=== PATIENT | male | born 1940 ===

== ENCOUNTER 2016-04-26 14:15 | Inpatient (IN) | payer MEDICARE, OTHER ==
[~2016-04-26] VITALS: Ht 172.7 cm; Wt 69.9 kg
[2016-04-26] MEDS ORDERED: IBUP-1482 PO (14:35)
[2016-04-26] MEDS ORDERED: ACET-2605 PO (14:35)
[2016-04-26] MEDS ORDERED: AMOX500C2 PO (14:35)
--- NOTE | 2016-04-26 14:45 | NUR ---
PT IS IN ROOM #1A. DR FRANCIS EVALUATED THE PT.
[2016-04-26] MEDS ORDERED: METRONIDAZOLE 500 MG/NS 100ML 100 ML IV ONE ×2 (15:15→15:31)
[2016-04-26] MEDS ORDERED: KETOROLAC TROMETHAMINE 15 MG INJ IVP ONE (15:15)
[2016-04-26] MEDS ORDERED: CEFTRIAXONE 1 G in IV DEXTROSE 5% 50 ML IV ONE (15:15)
[2016-04-26] MEDS ORDERED: IV NORMAL SALINE 1000 ML BAG IV ONE (15:15)
[2016-04-26] MEDS ORDERED: CEFTRIAXONE 1 G VIAL ONE (15:30)
[2016-04-26] MEDS ORDERED: KETOROLAC TROMETHAMINE 15 MG INJ ONE (15:30)
[2016-04-26 15:47] LABS: BASOPHILS % (AUTO) 0.2 % (0.0-2.0); EOSINOPHILS # (AUTO) 0.1 K/uL (0.0-0.7); EOSINOPHILS % (AUTO) 1.4 % (0.0-7.0); HEMATOCRIT 43.2 % (40.0-50.0); HEMOGLOBIN 14.4 g/dL (14.0-18.0); LYMPHOCYTES # (AUTO) 1.4 K/uL (0.8-4.8); LYMPHOCYTES % (AUTO) 19.5 % (20.5-51.5); MEAN CORPUSCULAR HGB CONC 33 g/dL (32.0-37.0); MEAN CORPUSCULAR VOLUME 81.2 fL (82.0-92.0); MONOCYTES # (AUTO) 0.7 K/uL (0.1-1.30); MONOCYTES % (AUTO) 9.6 % (0.0-11.0); NEUTROPHILS # (AUTO) 4.9 K/uL (1.8-8.9); NEUTROPHILS % (AUTO) 69.3 % (38.5-71.5); PLATELET COUNT (AUTO) 216 K/uL (150-450); RED BLOOD CELL COUNT(AUTO) 5.32 MIL/uL (4.70-6.10); WHITE BLOOD COUNT (AUTO) 7.1 K/uL (4.0-11.2)
[2016-04-26 15:51] LABS: CALCIUM 8.6 mg/dL (8.5-10.1); CREATININE 1.1 mg/dL (0.6-1.3); POTASSIUM 4.3 mmol/L (3.5-5.1)
[2016-04-26 15:55] LABS: TROPONIN I < 0.017 ng/mL (0.00-0.056)
[2016-04-26 15:57] LABS: ALBUMIN 3.3 g/dL (3.4-5.0); BILIRUBIN,DIRECT 0.1 mg/dL (0.0-0.2); BILIRUBIN,TOTAL 0.5 mg/dL (0.2-1.0); TOTAL PROTEIN, SERUM 8.4 g/dL (6.4-8.2)
[2016-04-26 16:01] LABS: LACTIC ACID 0.4 mmol/L (0.4-2.0)
--- NOTE | 2016-04-26 17:30 | NUR ---
PT WAS TRANSFERED TO M/S FLOOR, ROOM #221. REPORT WAS GIVEN TO M/S RN.
[2016-04-26] MEDS ORDERED: ONDANSETRON 4 MG/2 ML VIAL IV STA (17:46)
[2016-04-26] MEDS ORDERED: MORPHINE SULFATE 4 MG/1 ML DISP.SYRIN IV STA (17:46)
[2016-04-26] MEDS ORDERED: ONDANSETRON 4 MG/2 ML VIAL ONE (17:59)
[2016-04-26] MEDS ORDERED: MORPHINE SULFATE 4 MG/1 ML DISP.SYRIN ONE (17:59)
--- NOTE | 2016-04-26 18:00 | NUR ---
NEW PATIENT FROM ER TO ROOM 221 AWAKE ALERT COOPERATE WELL CALL SYSTEM INSTRUCTION BED ALARM ON AND CALL HARPER IN REACH HL INPLACE RT AC AND LFA
[2016-04-26 18:25] VITALS: BP 107/72
[2016-04-26] MEDS ORDERED: MAGNESIUM HYDROXIDE 30 ML LIQUID UDC PO PRN (19:45)
[2016-04-26] MEDS ORDERED: ZOLPIDEM 5 MG TABLET PO PRN (19:45)
[2016-04-26 20:00] VITALS: BP 133/72
[2016-04-26] MEDS: ACIDOPHILUS/BULGARICUS CHEW TAB PO SCH (20:28)
[2016-04-26] MEDS: MORPHINE SULFATE 2 MG/1 ML DISP.SYRIN IV PRN (20:29)
[2016-04-26] MEDS ORDERED: DOCUSATE SODIUM 100 MG CAPSULE PO ONE (20:31)
[2016-04-26] MEDS ORDERED: MORPHINE SULFATE 2 MG/1 ML DISP.SYRIN ONE (20:31)
[2016-04-26] MEDS ORDERED: ACIDOPHILUS/BULGARICUS CHEW TAB ONE ×2 (20:35→20:55)
[2016-04-26] MEDS ORDERED: DOCUSATE SODIUM 250 MG CAPSULE PO SCH (21:00)
[2016-04-26] MEDS ORDERED: CLINDAMYCIN PHOSPHATE 600 MG/4 ML VIAL ONE (21:07)
[2016-04-26] MEDS: CLINDAMYCIN PHOSPHATE IV 600 MG in IV DEXTROSE 5% 100 ML IV SCH (22:08)
[2016-04-27] MEDS: ONDANSETRON 4 MG/2 ML VIAL IV PRN (00:46)
[2016-04-27] MEDS ORDERED: ZOLPIDEM 5 MG TABLET ONE (00:52)
[2016-04-27] MEDS ORDERED: ONDANSETRON 4 MG/2 ML VIAL ONE (00:53)
[2016-04-27 04:00] VITALS: BP 135/72
[2016-04-27] MEDS: CLINDAMYCIN PHOSPHATE IV 600 MG in IV DEXTROSE 5% 100 ML IV SCH ×3 (06:17→22:10)
--- NOTE | 2016-04-27 06:32 | NUR ---
pt ambulated top br with mod one person assist, gait very unsteady this am. noticed dark brown spots to back and red rash to chin. pt denies itching. will continue to monitor and re-assess.
[2016-04-27 06:49] LABS: BASOPHILS % (AUTO) 0.3 % (0.0-2.0); EOSINOPHILS # (AUTO) 0.1 K/uL (0.0-0.7); EOSINOPHILS % (AUTO) 0.7 % (0.0-7.0); HEMATOCRIT 38.7 % (40.0-50.0); HEMOGLOBIN 13.4 g/dL (14.0-18.0); LYMPHOCYTES # (AUTO) 1.4 K/uL (0.8-4.8); LYMPHOCYTES % (AUTO) 14.2 % (20.5-51.5); MEAN CORPUSCULAR HEMOGLOBIN 28.3 uug (27.0-31.0); MEAN CORPUSCULAR HGB CONC 35 g/dL (32.0-37.0); MONOCYTES # (AUTO) 0.7 K/uL (0.1-1.30); MONOCYTES % (AUTO) 6.8 % (0.0-11.0); NEUTROPHILS # (AUTO) 7.6 K/uL (1.8-8.9); PLATELET COUNT (AUTO) 207 K/uL (150-450); RED BLOOD CELL COUNT(AUTO) 4.71 MIL/uL (4.70-6.10); RED CELL DISTRIBUTION WIDTH 12.9 % (11.5-14.5); WHITE BLOOD COUNT (AUTO) 9.8 K/uL (4.0-11.2)
[2016-04-27 07:08] LABS: ALBUMIN 3.1 g/dL (3.4-5.0); BILIRUBIN,TOTAL 0.5 mg/dL (0.2-1.0); CALCIUM 8.2 mg/dL (8.5-10.1); CREATININE 1.3 mg/dL (0.6-1.3); MAGNESIUM 1.7 mg/dL (1.8-2.4); POTASSIUM 4.1 mmol/L (3.5-5.1); TOTAL PROTEIN, SERUM 7.9 g/dL (6.4-8.2)
[2016-04-27 07:19] LABS: THYROID STIMULATING HORMONE 1.036 mIU/mL (0.358-3.740)
--- NOTE | 2016-04-27 07:20 | NUR ---
RECEIVED PATIENT IN BED, AAOx3, NO ACUTE DISTRESS NOTED. SKIN INTACT. IV 20G TO LEFT FA, CLEAN AND DRY, PATENT WITH SALINE FLUSH. NO REDNESS OR SWELLING. SAFETY MEASURES MAINTAINED.
--- NOTE | 2016-04-27 08:00 | NUR ---
PATIENT AWAKE AND ORIENTED x3, NO COMPLAINTS OF PAIN. pT IV INTACT H.L. Implemented plan of care with patient re: fall precaution, pain management of oral infection, and aspiration precaution. Noted Bruising on Right knee. Language barrier due to pt speaks mainly tajik with very little latvian. Bed alarm on.
[2016-04-27] MEDS: ACIDOPHILUS/BULGARICUS CHEW TAB PO SCH ×2 (08:46→21:50)
[2016-04-27] MEDS: PANTOPRAZOLE SODIUM 40 MG TABLET.DR PO SCH (08:46)
[2016-04-27] MEDS ORDERED: NEUTRA PHOS PACKET PO ONE (09:30)
[2016-04-27] MEDS ORDERED: MAGNESIUM OXIDE 400 MG TABLET PO ONE (09:30)
[2016-04-27] MEDS: ACETAMINOPHEN 325 MG TABLET PO PRN (11:39)
--- NOTE | 2016-04-27 11:45 | NUR ---
TEMP OF 101, TYLENOL 650MG GIVEN AND MD MADE AWARE. NO FURTHER ACTION NEEDED AT THIS TIME. WILL CONTINUE TO MONITOR TEMP.
[2016-04-27 11:48] VITALS: BP 110/64
--- NOTE | 2016-04-27 12:15 | NUR ---
TEMP 98.6, NO OTHER DISTRESS NOTED. NO FURTHER ACTION NEEDED AT THIS TIME. NO COMPLAINTS OF PAIN.
[2016-04-27 15:16] LABS: *BILIRUBIN,URIN NEGATIVE (NEGATIVE); *BLOOD, URINE Trace-lysed (NEGATIVE); *CLARITY,URINE CLEAR (CLEAR); *COLOR,URINE YELLOW (YELLOW); *KETONES,URINE NEGATIVE (NEGATIVE); *PROTEIN,URINE NEGATIVE (NEGATIVE); *UROBILINOGEN,URINE 0.2 E.U./dl (NORMAL); LEUKOCYTE ESTERASE ,URINE NEGATIVE (NEGATIVE); NITRITE, URINE NEGATIVE (NEGATIVE); UGLUCOSE NEGATIVE (NEGATIVE)
[2016-04-27 15:22] LABS: MUCUS,URINE FEW /LPF (0-FEW); WBC,URINE 0-3 /HPF (0-3)
[2016-04-27 15:40] VITALS: BP 90/61
--- NOTE | 2016-04-27 16:30 | NUR ---
COMMUNITY SERVICE SPECIALIST states that pt claiming that he fell last night. at bedside. Clarified with about pt c/o falling last night around MIDNIGHT. " Pt states that he fell and hit his right knee, right elbow and head- in kosovan language- to at around midnight. Pt states that he wanted to go to the bathroom. He fell and went back to bed per . Fall was not witnessed by anyone and pt did not inform anyone until now. " Pt has been alert and oriented x 3 and was able to make his needs known throughout shift. Notified Azra CAMPOS right away that after speaking to pt and further closer inspection small bruising on forehead noted in addition to bruising on right knee noted earlier this AM. New orders received and carried out.
[2016-04-27 20:00] VITALS: BP 105/63
[2016-04-27] MEDS: DOCUSATE SODIUM 100 MG CAPSULE PO SCH (21:50)
[2016-04-28 04:00] VITALS: BP 106/70
[2016-04-28] MEDS: CLINDAMYCIN PHOSPHATE IV 600 MG in IV DEXTROSE 5% 100 ML IV SCH ×3 (05:22→21:04)
[2016-04-28] MEDS: PANTOPRAZOLE SODIUM 40 MG TABLET.DR PO SCH (06:40)
--- NOTE | 2016-04-28 07:24 | NUR ---
Report received from shift superintendent. Patient received lying in bed AAOx3, no acute distress noted. Complaints of pain in jaw and mouth 08/25. Administered [place] po, no other interventions needed at this time. No change in mental status, no other pain noted elsewhere on body. Redness on right knee and right elbow, no acute changes to sites. Safety precautions maintained, fall precautions maintained. Call light within reach.
[2016-04-28 07:50] LABS: BASOPHILS % (AUTO) 0.3 % (0.0-2.0); EOSINOPHILS # (AUTO) 0.2 K/uL (0.0-0.7); EOSINOPHILS % (AUTO) 3.1 % (0.0-7.0); HEMATOCRIT 38.8 % (40.0-50.0); LYMPHOCYTES # (AUTO) 1.9 K/uL (0.8-4.8); LYMPHOCYTES % (AUTO) 24.2 % (20.5-51.5); MEAN CORPUSCULAR HEMOGLOBIN 27.6 uug (27.0-31.0); MEAN CORPUSCULAR HGB CONC 34 g/dL (32.0-37.0); MEAN CORPUSCULAR VOLUME 82.4 fL (82.0-92.0); MONOCYTES # (AUTO) 0.9 K/uL (0.1-1.30); MONOCYTES % (AUTO) 11.4 % (0.0-11.0); PLATELET COUNT (AUTO) 196 K/uL (150-450); RED BLOOD CELL COUNT(AUTO) 4.71 MIL/uL (4.70-6.10); RED CELL DISTRIBUTION WIDTH 13.2 % (11.5-14.5)
[2016-04-28 08:06] LABS: ALBUMIN 2.7 g/dL (3.4-5.0); BILIRUBIN,TOTAL 0.7 mg/dL (0.2-1.0); MAGNESIUM 1.7 mg/dL (1.8-2.4); PHOSPHOROUS 2.9 mg/dL (2.5-4.9); POTASSIUM 4.3 mmol/L (3.5-5.1); TOTAL PROTEIN, SERUM 7.3 g/dL (6.4-8.2)
[2016-04-28] MEDS: ACIDOPHILUS/BULGARICUS CHEW TAB PO SCH ×2 (09:28→21:01)
[2016-04-28] MEDS: HYDROCODONE/APAP 5-325MG TABLET PO PRN (09:29)
--- NOTE | 2016-04-28 10:31 | NUR ---
CLINICAL PHARMACY NOTE: REVIEW OF CSC MEDICATIONS Patient is a 75 yo male admitted after possible unresolved infection after dental procedure (extraction) earlier this month. Per patient report, patient had fever, felt dizzy and weak, and persistent pain at dental sites. Patient is otherwise in good health, documented home medications are only two pain medications, tylenol and ibuprofen, and course of amoxicillin for recent procedure done. High Risk Medications at this time (from home and in house): Zolpidem - increased risk of SEs dizziness, ataxia and therefore increased fall risk in elderly. Per RN note last night, it was noted patient had fallen on way to bathroom per pt's 's report to staff. No zolpidem was given, however, risk of another fall is increased from medication Ibuprofen - increased risk of GI bleed in elderly, however, pt is not on medication for care home use (for management of recent procedure pain) and prescribed as PRN. Patient is not on other medications such as ASA and does not have comorbid conditions such as PUD that could exacerbate risk of medication use. Morphine/[place] - increased risk of severe constipation and TRACTOR TRAILER DRIVER effects such as over-sedation/cognitive dysfunction that may lead to increased risk of falls. Patient is on for management of persistent pain from unresolved infection of dental procedure and has bowel regimen (docusate daily) to prevent constipation. Patient has used primarily tylenol so far in house for mild pain and has used only a dose of norco for moderate so far, from administration timing, patient's recent fall overnight likely not associated with dose of opioid given. As patient is in largely good health aside from dental procedure complication that he is being treated for, and all medications are indicated except zolpidem which is likely from routine medication set for inpatient management, will recommend to d/c or change zolpidem, especially as patient has had reported fall overnight. Addendum: 04/28/16 at 1117 by VENUS BREWSTER [facility] Relayed recommendation to , agreed to jermaine/christina oliver.
[2016-04-28 11:58] VITALS: BP 94/65
[2016-04-28] MEDS ORDERED: MAGNESIUM OXIDE 400 MG TABLET PO ONE (13:00)
[2016-04-28] MEDS: ONDANSETRON 4 MG/2 ML VIAL IV PRN (13:09)
[2016-04-28] MEDS ORDERED: MAGNESIUM HYDROXIDE 30 ML LIQUID UDC PO ONE (14:30)
[2016-04-28 15:34] VITALS: BP 96/59
--- NOTE | 2016-04-28 18:30 | NUR ---
Pt is in no acute distress. Pt noted facial redness slightly increase ( pt had prior redness around mouth) in intensity and will continue to be monitored. 1910 Report given to restaurant shift leader and redness on face decreased in intensit/redness. MOM effective pt had large bm.
[2016-04-28 20:00] VITALS: BP 81/57
[2016-04-28] MEDS: DOCUSATE SODIUM 100 MG CAPSULE PO SCH (21:01)
[2016-04-28] MEDS ORDERED: VANCOMYCIN IV 1 G in PREMIXED 0 EACH IV ONE (23:00)
[2016-04-28] MEDS: ACETAMINOPHEN 325 MG TABLET PO PRN (23:59)
[2016-04-29] MEDS ORDERED: PIPERACILLIN SODIUM/TAZO 3.375 GM VIAL ONE (00:54)
[2016-04-29] MEDS ORDERED: VANCOMYCIN 1000 MG VIAL ONE (00:54)
--- NOTE | 2016-04-29 01:00 | NUR ---
Vancmycin 1gm IVPB & Zosyn 3.375 g started as ordered. Patient tolerated well.
[2016-04-29 06:02] VITALS: BP 83/57
[2016-04-29] MEDS: PANTOPRAZOLE SODIUM 40 MG TABLET.DR PO SCH (06:17)
[2016-04-29] MEDS: PIPERACILLIN/TAZOBACTAM/D5W 3.375 G in PREMIXED 1 EACH IV SCH ×5 (06:27→21:47)
--- NOTE | 2016-04-29 06:45 | NUR ---
Patient resting comfortably. Denies pain at this time. Current BP 83/57. SUPERVISOR COMPOSING ROOM wood preparation supervisor notified. No further orders was received. Will continue to monitor.
[2016-04-29 06:46] LABS: BASOPHILS % (AUTO) 0.3 % (0.0-2.0); EOSINOPHILS # (AUTO) 0.2 K/uL (0.0-0.7); EOSINOPHILS % (AUTO) 2.6 % (0.0-7.0); HEMATOCRIT 40.9 % (40.0-50.0); HEMOGLOBIN 13.5 g/dL (14.0-18.0); LYMPHOCYTES # (AUTO) 1.5 K/uL (0.8-4.8); LYMPHOCYTES % (AUTO) 16.6 % (20.5-51.5); MEAN CORPUSCULAR HGB CONC 33 g/dL (32.0-37.0); MEAN CORPUSCULAR VOLUME 81.7 fL (82.0-92.0); MONOCYTES # (AUTO) 0.9 K/uL (0.1-1.30); MONOCYTES % (AUTO) 10.1 % (0.0-11.0); NEUTROPHILS # (AUTO) 6.2 K/uL (1.8-8.9); NEUTROPHILS % (AUTO) 70.4 % (38.5-71.5); PLATELET COUNT (AUTO) 237 K/uL (150-450); RED CELL DISTRIBUTION WIDTH 13.3 % (11.5-14.5); WHITE BLOOD COUNT (AUTO) 8.8 K/uL (4.0-11.2)
[2016-04-29 07:13] LABS: ALBUMIN 2.8 g/dL (3.4-5.0); BILIRUBIN,TOTAL 0.6 mg/dL (0.2-1.0); CALCIUM 8.2 mg/dL (8.5-10.1); MAGNESIUM 2.1 mg/dL (1.8-2.4); PHOSPHOROUS 3.3 mg/dL (2.5-4.9); POTASSIUM 4.4 mmol/L (3.5-5.1); TOTAL PROTEIN, SERUM 7.4 g/dL (6.4-8.2)
[2016-04-29] MEDS: HYDROCODONE/APAP 5-325MG TABLET PO PRN (08:26)
[2016-04-29] MEDS: MIRALAX 17 GM POWD.PACK PO SCH (08:26)
[2016-04-29] MEDS: ACIDOPHILUS/BULGARICUS CHEW TAB PO SCH ×2 (08:26→20:54)
[2016-04-29 08:32] VITALS: BP 99/61
[2016-04-29] MEDS ORDERED: VANCOMYCIN IV 1 G in PREMIXED 0 EACH IV SCH (09:30)
--- NOTE | 2016-04-29 11:19 | NUR ---
Clinical Pharmacy Note: Vancomycin Dosing per Pharmacy Subjective: Vancomycin IV to start on this patient for Cellulitis and abscess of oral soft tissues (per ER physician note). Patient received vancomycin 1gm IVPB x1 dose at midnight. 75 yo male ht 68 '' wt 154 lb Objective: BUN 15/Scr 1.0 WBC 8.8 Temperature 98 Assessment/Plan: Will start vancomycin 1000mg IVPB Q16hr for a predicted vancomycin steady state trough level of 15.8 mcg/ml. Second dose is due today at 1600. Will draw a vancomycin trough level prior to the 4th dose of vancomycin (not ordered yet). Will monitor renal function and adjust vancomycin dose, if needed, should renal function change significantly. Will follow daily.
[2016-04-29 11:55] VITALS: BP 82/48
[2016-04-29] MEDS ORDERED: BENZOCAINE/MENTH/CETYLPYRD LOZENGE MM PRN (12:15)
[2016-04-29 16:13] VITALS: BP 87/61
[2016-04-29] MEDS: VANCOMYCIN IV 1 G in PREMIXED 0 EACH IV SCH (16:53)
[2016-04-29] MEDS: ACETAMINOPHEN 325 MG TABLET PO SCH (16:55)
[2016-04-29] MEDS: MORPHINE SULFATE 2 MG/1 ML DISP.SYRIN IV PRN ×2 (17:52→21:47)
[2016-04-29 18:22] VITALS: BP 105/85
[2016-04-29 18:46] LABS: *OCCULT BLOOD STOOL NEGATIVE (NEGATIVE)
--- NOTE | 2016-04-29 19:30 | NUR ---
received pt in bed awake and alert, portuguese speaking. in no acute distress on room air. safety measures are in place. call light within reach. will continue to monitor.
[2016-04-29 20:00] VITALS: BP 87/58
[2016-04-29] MEDS: DOCUSATE SODIUM 100 MG CAPSULE PO SCH (20:59)
[2016-04-29] MEDS: CHLORHEXIDINE GLUCONATE 15 ML MOUTHWASH MM SCH (21:03)
[2016-04-30] MEDS: IV NS 1000 ML 1,000 ML IV PRN ×2 (01:40→17:16)
[2016-04-30] MEDS: HYDROCODONE/APAP 5-325MG TABLET PO PRN ×2 (01:43→17:18)
[2016-04-30] MEDS: PIPERACILLIN/TAZOBACTAM/D5W 3.375 G in PREMIXED 1 EACH IV SCH ×3 (05:55→21:02)
[2016-04-30 05:58] VITALS: BP 85/58
--- NOTE | 2016-04-30 06:00 | NUR ---
afebrile. atb given as ordered. no s/s of adverse reactions noted. call light within reach. safety measures are in place
[2016-04-30] MEDS: PANTOPRAZOLE SODIUM 40 MG TABLET.DR PO SCH (06:06)
[2016-04-30] MEDS: ACETAMINOPHEN 325 MG TABLET PO SCH ×3 (08:16→17:16)
[2016-04-30] MEDS: ACIDOPHILUS/BULGARICUS CHEW TAB PO SCH ×2 (08:16→20:45)
[2016-04-30] MEDS: MIRALAX 17 GM POWD.PACK PO SCH (08:16)
[2016-04-30] MEDS: CHLORHEXIDINE GLUCONATE 15 ML MOUTHWASH MM SCH (08:17)
[2016-04-30] MEDS: VANCOMYCIN IV 1 G in PREMIXED 0 EACH IV SCH (08:23)
[2016-04-30] MEDS: MIDODRINE HCL 5 MG TABLET PO SCH ×2 (11:03→20:48)
[2016-04-30 11:46] VITALS: BP 96/62
[2016-04-30] MEDS: NYSTATIN SUSPENSION 5 ML LIQUID UDC PO SCH ×3 (14:12→20:45)
--- NOTE | 2016-04-30 14:28 | NUR ---
Clinical Pharmacy Note: Vancomycin Dosing per Pharmacy Subjective: Vancomycin IV to start on this patient for Cellulitis and abscess of oral soft tissues (per ER physician note). 75 yo male ht 68 '' wt 154 lb Objective: BUN 15/Scr 1.0 (04/29) WBC 8.8 (04/29) Temperature 98.5 Assessment/Plan: No new labs today, will continue vancomycin 1000mg IVPB Q16hr for a predicted vancomycin steady state trough level of 15.8 mcg/ml. Will draw a vancomycin trough level prior to the 4th dose of vancomycin (ordered for 2330 [facility] 04/30). RN to hold dose if trough >20. Will check level and renal function in am and adjust as appropriate. Will follow daily.
[2016-04-30] MEDS ORDERED: CHLORHEXIDINE GLUCONATE 15 ML MOUTHWASH MM PRN (15:15)
[2016-04-30 15:45] VITALS: BP 97/63
[2016-04-30 20:00] VITALS: BP 106/59
[2016-04-30] MEDS: DOCUSATE SODIUM 100 MG CAPSULE PO SCH (20:45)
--- NOTE | 2016-04-30 21:39 | NUR ---
Patient sleeping comfortably with no acute distress noted. Call light kept within reach. Will continue to monitor.
[2016-05-01] MEDS: VANCOMYCIN IV 1 G in PREMIXED 0 EACH IV SCH (00:18)
[2016-05-01] MEDS: HYDROCODONE/APAP 5-325MG TABLET PO PRN (00:19)
[2016-05-01 04:00] VITALS: BP 97/64
[2016-05-01] MEDS: PIPERACILLIN/TAZOBACTAM/D5W 3.375 G in PREMIXED 1 EACH IV SCH ×2 (05:14→14:04)
[2016-05-01] MEDS: IV NS 1000 ML 1,000 ML IV PRN (05:25)
[2016-05-01] MEDS: PANTOPRAZOLE SODIUM 40 MG TABLET.DR PO SCH (06:12)
[2016-05-01 06:38] LABS: BASOPHILS % (AUTO) 0.3 % (0.0-2.0); EOSINOPHILS # (AUTO) 0.5 K/uL (0.0-0.7); EOSINOPHILS % (AUTO) 5.1 % (0.0-7.0); HEMATOCRIT 38.7 % (40.0-50.0); HEMOGLOBIN 12.9 g/dL (14.0-18.0); LYMPHOCYTES # (AUTO) 1.4 K/uL (0.8-4.8); LYMPHOCYTES % (AUTO) 14.8 % (20.5-51.5); MEAN CORPUSCULAR HEMOGLOBIN 27.5 uug (27.0-31.0); MEAN CORPUSCULAR HGB CONC 33 g/dL (32.0-37.0); MEAN CORPUSCULAR VOLUME 82.3 fL (82.0-92.0); MONOCYTES # (AUTO) 0.9 K/uL (0.1-1.30); MONOCYTES % (AUTO) 8.9 % (0.0-11.0); NEUTROPHILS # (AUTO) 6.8 K/uL (1.8-8.9); NEUTROPHILS % (AUTO) 70.9 % (38.5-71.5); PLATELET COUNT (AUTO) 239 K/uL (150-450); RED CELL DISTRIBUTION WIDTH 13.3 % (11.5-14.5); WHITE BLOOD COUNT (AUTO) 9.6 K/uL (4.0-11.2)
[2016-05-01 08:00] LABS: ALBUMIN 2.6 g/dL (3.4-5.0); BILIRUBIN,TOTAL 0.6 mg/dL (0.2-1.0); CALCIUM 7.8 mg/dL (8.5-10.1); MAGNESIUM 1.7 mg/dL (1.8-2.4); PHOSPHOROUS 3.2 mg/dL (2.5-4.9); POTASSIUM 3.8 mmol/L (3.5-5.1)
[2016-05-01] MEDS: NYSTATIN SUSPENSION 5 ML LIQUID UDC PO SCH ×3 (08:07→17:12)
[2016-05-01] MEDS: ACIDOPHILUS/BULGARICUS CHEW TAB PO SCH (08:07)
[2016-05-01] MEDS: ACETAMINOPHEN 325 MG TABLET PO SCH ×3 (08:08→17:12)
[2016-05-01] MEDS: MIDODRINE HCL 5 MG TABLET PO SCH (08:08)
[2016-05-01] MEDS: MIRALAX 17 GM POWD.PACK PO SCH (08:08)
[2016-05-01] MEDS ORDERED: CHOLECALCIFEROL 1,000 UNIT TABLET PO SCH (09:00)
[2016-05-01] MEDS ORDERED: ACIDOPHILUS/BULGARICUS CHEW TAB PO SCH (09:15)
[2016-05-01 11:15] VITALS: BP 128/66
[2016-05-01] MEDS: ONDANSETRON 4 MG/2 ML VIAL IV PRN (11:16)
[2016-05-01] MEDS ORDERED: VANCOMYCIN IV 1 G in PREMIXED 0 EACH IV SCH (14:00)
[2016-05-01 15:11] VITALS: BP 118/64
--- NOTE | 2016-05-01 16:48 | NUR ---
Clinical Pharmacy Note: Vancomycin Dosing per Pharmacy Subjective: Vancomycin IV to continue on this patient for Cellulitis and abscess of oral soft tissues . 75 yo male ht 68 '' wt 154 lb Objective: BUN 10/Scr 1.0 WBC 9.6 Temperature 98.6 Vancomycin trough 10 (level drawn last night at 2330) Assessment/Plan: Since Vancomycin trough is under therapeutic level, will increase dose to 1 gram IV every 12hrs, first dose given at 1400 today. Vancomycin trough by 4th dose(not ordered yet) for expected trough around 15. Will follow daily.
[2016-05-01] MEDS: MAGNESIUM SULFATE/D5W 100 ML IV SCH ×2 (16:50→18:08)
--- NOTE | 2016-05-01 18:14 | NUR ---
The patient will be discharged today to [facility] [ ; [address] [place] [address]] via [facility]. Spoke to both the patient and his , Linda [ ], about the discharge and they requested for a private room and in agreement of the discharge. They requested for the discharge to be later today because his will be here in the hospital at around 7:00 p.m. Heide from [facility] confirmed that they made a private room for the patient today and they will admit him today. His RN, Dee, is aware of his discharge. An RN will call the facility for the report.
[2016-05-01] MEDS ORDERED: CHOL10002 PO (19:01)
[2016-05-01] MEDS ORDERED: HYDR-3326 PO (19:01)
[2016-05-01] MEDS ORDERED: PANT40TA2 PO (19:01)
[2016-05-01] MEDS ORDERED: ACID1TAB4 PO (19:01)
[2016-05-01] MEDS ORDERED: Nystatin PO (19:01)
[2016-05-01] MEDS ORDERED: POLY17PO4 PO (19:01)
[2016-05-01] MEDS ORDERED: MIDO5TAB4 PO (19:01)
[2016-05-01] MEDS ORDERED: CHLO15MO MM (19:01)
[2016-05-01] MEDS ORDERED: RXVAN XX (19:01)
[2016-05-01] MEDS ORDERED: Docusate Sodium PO (19:01)
[2016-05-01] MEDS ORDERED: PIPE3.379 IV (19:01)
[2016-05-01] MEDS ORDERED: MULT-1045 PO (19:01)
[2016-05-01] MEDS ORDERED: MAGN400O4 PO (19:01)
[2016-05-01] MEDS ORDERED: Benzocaine/Menth/Cetylpyrd Cl MM (19:01)
--- NOTE | 2016-05-01 22:10 | NUR ---
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 GIVEN REPORT TO AMBULANCE STAFF, AND ALL PAPER WORKS. PLACE [facility] GIVEN REPORT TO ADAM CHAPA.
== END 2016-05-01 22:21 | DRG 872 ==
LOC: ER 14:15 → MED 17:42
PROVIDERS: ADMIT Internal Medicine; ATTEND Internal Medicine
DX: A41.9 Sepsis, unspecified organism (principal); E87.1 Hypo-osmolality and hyponatremia; D68.59 Other primary thrombophilia; E27.40 Unspecified adrenocortical insufficiency; K05.00 Acute gingivitis, plaque induced; R51 Headache; E86.0 Dehydration; E83.42 Hypomagnesemia; F32.9 Major depressive disorder, single episode, unspecified; D50.9 Iron deficiency anemia, unspecified; Z74.09 Other reduced mobility; H91.90 Unspecified hearing loss, unspecified ear; E55.9 Vitamin D deficiency, unspecified; I95.1 Orthostatic hypotension; R53.1 Weakness; M19.90 Unspecified osteoarthritis, unspecified site; B35.1 Tinea unguium; K59.00 Constipation, unspecified; S52.021A Displaced fracture of olecranon process without intraarticular extension of right ulna, initial encounter for closed fracture; W06.XXXA Fall from bed, initial encounter; Y93.9 Activity, unspecified; Y92.230 Patient room in hospital as the place of occurrence of the external cause; Y99.9 Unspecified external cause status; K08.409 Partial loss of teeth, unspecified cause, unspecified class; B37.9 Candidiasis, unspecified
CPT/HCPCS: 36415; 70030-TC; 70450; 71010; 73080; 73200; 73560; 82306; 82378; 83550; 83605; 83735; 84100; 84443; 85025; 85730; 87040; 87086; 87400; 92506; 93005; 97001; 97003; 97110; 97116; 97530; 97535; A4663; J0696; J1885; J2270; J2405; J2543; J3370; J3475; J3490; J7030; J7050; J7060